=== PATIENT | female | born 1940 | race Caucasian/White ===

== ENCOUNTER 2025-01-16 11:12 | Outpatient (CLI) | payer MEDICARE, SELFPAY ==
--- NOTE | 2025-01-16 11:45 | MR_ITS ---
WS: [id number] MRI HEAD WITHOUT CONTRAST TECHNIQUE: Sagittal T1, T2 axial, T2 axial FLAIR, axial and coronal T1 images, axial susceptibility weighted imaging, axial diffusion weighted images, and coronal T2 images were obtained. CLINICAL INFORMATION: M62.81 - Muscle weakness (generalized) COMPARISON: None. FINDINGS: No evidence of restricted diffusion to suggest acute ischemia Ventricular system and basal cisterns are patent. Mild small vessel changes. Moderate parenchymal volume loss. Normal posterior fossa. Normal vascular flow voids at the skull base. No extra-axial fluid collections. No evidence of mass or mass effect. No hemosiderin on susceptibility-weighted images. Moderate to advanced atrophy mesial temporal lobes and hippocampal formations. Normal optic chiasm and pituitary infundibulum. MR/MR head wo con* [id number] IMPRESSION: 1. No evidence of restricted diffusion to suggest acute ischemia. 2. Mild small vessel changes with moderate parenchymal volume loss. 3. 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 4. No hemosiderin on the susceptibly weighted images.
--- NOTE | 2025-01-16 12:09 | XR_ITS ---
WS: [email or web address] Lumbar spine, AP and lateral views, 01/16/2025 Clinical Data: M25.50 - Pain in unspecified joint Comparison: None. Findings: No compression fractures are seen. There is disc narrowing at all disc spaces from T12-L1 through L5-S1. There is diffuse osteoporosis and osteoarthritis of all the lumbar vertebral bodies. There is a levoscoliosis of the lumbar spine. There is 1.75 cm anterior subluxation of L5 on S1. The transverse processes and SI joints are normal. There is calcification of the abdominal aorta but no aneurysm. XR/XR lumbar spine 2-3V* [id number] Impression: 1. Multilevel degenerative disc narrowing. 2. Osteoporosis, osteoarthritis and levoscoliosis.
--- NOTE | 2025-01-16 12:09 | XR_ITS ---
WS: [email or web address] Right hip, AP and frog-leg views, 01/16/2025 Clinical Data: M25.50 - Pain in unspecified joint Comparison: None. Findings: No fractures or dislocations are seen. The right hip shows no erosion, sclerosis, narrowing, cyst formation or fragmentation of the right femoral head. The soft tissues are not remarkable. The adjacent pelvis is normal. XR/XR hip RT 2-3V wo/w pel* [id number] Impression: Negative right hip.
--- NOTE | 2025-01-16 12:09 | XR_ITS ---
WS: [id number] Right arm and humerus, 3 views, 01/16/2025 Clinical Data: M25.50 - Pain in unspecified joint Comparison: None. 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 No periprosthetic fractures or loosening is seen. XR/[place] [id number] Impression: Reverse total right shoulder arthroplasty.
== END 2025-01-16 11:13 | disposition home or self-care (01) ==
PROVIDERS: PCP Nurse Practitioner; Visit Provider Nurse Practitioner
DX: M47.896 Other spondylosis, lumbar region (principal); M25.50 Pain in unspecified joint; M62.81 Muscle weakness (generalized); M79.604 Pain in right leg; R93.0 Abnormal findings on diagnostic imaging of skull and head, not elsewhere classified; G31.89 Other specified degenerative diseases of nervous system; M51.369 Other intervertebral disc degeneration, lumbar region without mention of lumbar back pain or lower extremity pain; M51.35 Other intervertebral disc degeneration, thoracolumbar region; M81.0 Age-related osteoporosis without current pathological fracture; M51.379 Other intervertebral disc degeneration, lumbosacral region without mention of lumbar back pain or lower extremity pain; M41.86 Other forms of scoliosis, lumbar region; R93.7 Abnormal findings on diagnostic imaging of other parts of musculoskeletal system; I70.0 Atherosclerosis of aorta; Z98.890 Other specified postprocedural states
CPT/HCPCS: 70551; 72100; 73060; 73502